=== PATIENT | female | born 1940 | race Caucasian/White ===

== ENCOUNTER 2020-01-23 13:42 | Emergency (ER) | payer MEDICARE, MEDICAID ==
[~2020-01-23] VITALS: Ht 152.4 cm; Wt 64.0 kg
[~2020-01-23 13:42] MED LIST: ASPI-515 PO; ATOR10TA9 PO; LOSA1TAB19 PO; LOSA1TAB7 PO; METF500T17 PO; MIRT15TA94 PO; OMEG1CAP6 PO
--- NOTE | 2020-01-23 14:19 | NUR ---
pt ambulated to room, sitting in bed, daughter at bedside translatting, pt made aware of translating services, and asked if she would prefer daughter or [employer] engineer, pt stated prefered daughter to translate.
[2020-01-23] MEDS ORDERED: HYDROcodone/APAP 5/325 TABLET PO STA (14:21)
[2020-01-23] MEDS ORDERED: HYDROcodone/APAP 5/325 TABLET ONE (14:30)
--- NOTE | 2020-01-23 14:35 | NUR ---
pt medicated to mar, to xray.
[2020-01-23 16:16] VITALS: BP 168/83
== END 2020-01-23 16:42 | disposition home or self-care (01) ==
LOC: ED 16:41
DX: S42.201A Unspecified fracture of upper end of right humerus, initial encounter for closed fracture (principal); E11.9 Type 2 diabetes mellitus without complications; I10 Essential (primary) hypertension; W18.30XA Fall on same level, unspecified, initial encounter; Y93.89 Activity, other specified; Y92.009 Unspecified place in unspecified non-institutional (private) residence as the place of occurrence of the external cause; Y99.8 Other external cause status
CPT/HCPCS: 99284